=== PATIENT | female | born 1995 | race Two or more races ===

== ENCOUNTER 2024-10-10 08:57 | Emergency (ER) | payer MEDICAID, OTHER ==
[~2024-10-10] VITALS: Ht 165.1 cm; Wt 92.4 kg
[2024-10-10 10:13] VITALS: BP 113/75; PULSE 82; RESP 16; TEMP 98.5; O2SAT 98
--- NOTE | 2024-10-10 10:15 | ED.PDOC ---
SOB-HPI HPI Comments Pleasant 29-year-old with no MHx presents with a chief complaint of URI symptoms x7 days. Complains of a nonproductive cough in his not taken medications for the the symptoms listed above. Also complains of right ear otalgia x1 day. Denies fevers chills night sweats unintentional weight loss Denies persistent chest pain, shortness of breath, leg swelling Denies history of asthma nor any breathing conditions Denies history of pneumonia Denies recent international travel Chief Complaint: Cough Time Seen by MD: 09:21 Reviewed notes: Nurses Notes, Medications, Allergies Information Source: Patient Mode of Arrival: Ambulatory All Other Systems: Reviewed and Negative (per hpi) Physical Exam General Appearance: No Apparent Distress, Normal HEENT: Normal ENT Inspection, Pharynx Normal, Other (Bilateral cerumen impaction) Neck: Full Range of Motion, Non-Tender, Normal, Normal Inspection Respiratory: Chest Non-Tender, Lungs Clear, No Accessory Muscle Use, No Respiratory Distress, Normal Breath Sounds Cardiovascular: No Edema, No JVD, No Murmur, No Gallop, Normal Peripheral Pulses, Regular Rate/Rhythm Breast Exam: Deferred Gastrointestinal: No Organomegaly, Non Tender, No Pulsatile Mass, Normal Bowel Sounds, Soft Genitalia: Deferred Pelvic: Deferred Rectal: Deferred Extremities: No calf tenderness, Normal capillary refill, Normal inspection, Normal range of motion, Non-tender, No pedal edema Musculoskeletal : Apperance: Normal Neurologic: Alert, business system consultant II-XII nml as Tested, No Motor Deficits, Normal Affect, Normal Mood, No Sensory Deficits Cerebellar Function: Normal Reflexes: Normal Skin: Dry, Normal Color, Warm Lymphatic: No Adenopathy Was a procedure done? Was a procedure done?: No Differential Dx Differential Diagnosis: URI X-Ray, Labs, Meds, VS Vital Signs Date Time Temp Pulse Resp B/P (MAP) Pulse Ox O2 Delivery O2 Flow Rate FiO2 10/10/24 10:13 98.5 82 16 113/75 (88) 98 98.5 10/10/24 10:13 82 16 98 Room Air 10/10/24 09:20 18 98 Room Air* 0 21 10/10/24 09:20 98.5 82 16 113/75 (88) 98 X-Ray, Labs, Meds, VS Comment Prescribed p.o. antibiotics for presentation of symptoms Complete course of antibiotic therapy even if symptoms improve or resolve. There should be no leftover antibiotics as this can lead to antibiotic resistant bacteria and even worse infection. Patient verbalized understanding. Exam findings consistent with impacted cerumen Patient tried Debrox eardrops without improvement Risk and benefits were discussed Verbally consented to the procedure Manual removal of earwax was performed with a lighted curette Remaining wax was removed with ear lavage system. Patient tolerated procedure well On reevaluation of ear, improved ear cannal with small cerumen, visualization of TM is intact. Avoid self instrumentation/Q-tips Return precautions were discussed including fever vertigo hearing loss or purulent drainage On reevaluation, patient had symptomatic improvement. Patient is stable for discharge at this time. External notes reviewed. Test results and diagnostic imaging interpreted. All diagnostic findings, discharge care, education and instructions provided Follow-up with PCP in 2 to 3 days Patient verbalized understanding and agreed to treatment plan Vital signs stable, afebrile, no acute distress noted Patient ambulatory with strong steady gait Advised to return precautions for any new or worsening symptoms, return to ER immediately for re-evaluation Patient is aware that the purpose of this visit was for an acute medical emergency requiring emergent stabilization. Chronic conditions, including malignancies have not been ruled out. Patient is instructed to follow up with PCP as directed and discharge instructions for continued care and workup. If unable to arrange follow-up, patient is to return to the emergency department for reassessment. Patient (parent or legal guardian if applicable) was given verbal and written discharge instructions and acknowledges understanding. Time of 1ST Reevaluation: 10:15 Reevaluation 1ST: Improved Patient Education/Counseling: Diagnosis, Treatment Family Education/Counseling: Diagnosis, Treatment Departure 1 Departure Time of Disposition: 10:37 Impression: Primary Impression: Bronchitis Additional Impression: Cerumen impaction Qualified Codes: H61.21 - Impacted cerumen, right ear Disposition: HOME / SELF CARE / HOMELESS Condition: Stable e-Prescriptions Ciprofloxacin-Dexamethasone (Ciprofloxacin/Dexamethaso 0.3-0.1 %) 1 Danielle Danielle 4 KAUR OT BID for 7 Days, #5 ML 0 Refills Prov: OLIVE HOSKINS [employer] 10/10/24 Promethazine-Dm (Promethazine Dm 6.25-15 mg/5Ml) 1 Jaqueline Jaqueline 5 ML PO TID for 10 Days, #150 ML 0 Refills Prov: OLIVE HOSKINS NP 10/10/24 Amoxicillin & Pot Clavulanate (AUGMENTIN TABLET) 875 Mg Tb 875 MG PO BID for 7 Days, #14 TAB 0 Refills Prov: OLIVE HOSKINS NP 10/10/24 Discharged With: Self Critical Care Note Critical Care Time?: No Stability Stability form required: No Heart Score Heart Score: Heart Score Response (Comments) Value History N/A 0 EKG N/A 0 Age N/A 0 Risk Factors N/A 0 Troponin N/A 0 Total 0 OLIVE HOSKINS [employer] Oct 10, 2024 10:15
[2024-10-10] MEDS ORDERED: PROM1SOL4 PO (10:41)
[2024-10-10] MEDS ORDERED: AUG875T PO (10:41)
[2024-10-10] MEDS ORDERED: CIPR1SUS8 OT (10:41)
== END 2024-10-10 10:44 | disposition home or self-care (01) ==
LOC: ER 08:57
DX: J40 Bronchitis, not specified as acute or chronic (principal); H61.21 Impacted cerumen, right ear